=== PATIENT | male | born 1965 | race Caucasian/White ===

== ENCOUNTER → 2022-06-30 10:21 | Outpatient (CLI) | payer OTHER, MEDICAID, SELFPAY | PROVIDERS: Visit Provider Student in an Organized Health Care Education/Training Program | DX: N39.0 Urinary tract infection, site not specified (principal) | CPT/HCPCS: 81002; 87077; 87086; 87186 ==

== ENCOUNTER → 2022-10-02 09:53 | Outpatient (CLI) | payer OTHER, SELFPAY ==
[2022-10-02 10:42] LABS: Add Manual Diff / Slide Review NO; Basophils Absolute Auto 100 /uL (0-100); Basophils Percent Auto 0.6 % (0-2); Eosinophils Absolute Auto 100 /uL (0-450); Eosinophils Percent Auto 1.1 % (2-4); Hematocrit 45.2 % (41-53); Lymphocytes Absolute Auto 2100 /uL (1100-4500); Lymphocytes Percent Auto 20.8 % (25-40); Mean Corpuscular HGB Conc 35.3 % (30-36); Mean Corpuscular Hemoglobin 33.8 PG (26-34); Mean Corpuscular Volume 95.7 fL (80-100); Monocytes Absolute Auto 1200 /uL (0-900); Monocytes Percent Auto 11.9 % (3-14); Neutrophils Absolute Auto 6500 /uL (1500-7000); Neutrophils Percent Auto 65.6 % (50-75); Platelet Count 217 X10^3/uL (150-400); Red Blood Cell Count 4.72 X10^6/uL (4.5-5.9); Red Cell Distribution Width 13.4 % (11.6-14.8)
[2022-10-02 10:59] LABS: Alanine Aminotransferase 79 IU/L (<50); Albumin 3.8 g/dL (3.5-5.0); Alkaline Phosphatase 118 U/L (38-126); Aspartate Aminotransferase 53 IU/L (17-59); BUN Creatinine Ratio 12.5 (6-22); Bilirubin Total 0.5 mg/dL (0.2-1.3); Blood Urea Nitrogen 9 mg/dL (9-20); Calcium 8.4 mg/dL (8.4-10.2); Carbon Dioxide 33 mmol/L (22-32); Chloride 100 mmol/L (98-107); Cholesterol 184 mg/dL (140-199); Estimated Glomerular Filt Rate > 60 mL/min (>60); Globulin 3.8 g/dL (1.7-4.1); Glucose 112 mg/dL (70-100); HDL Cholesterol 31 mg/dL (40-60); HEMOLYSIS < 15 (0-50); LDL Cholesterol Calculated 124 mg/dL (<100); Potassium 3.5 mmol/L (3.4-5.1); Sodium 139 mmol/L (137-145); Total Protein 7.6 g/dL (6.3-8.2); Triglycerides 145 mg/dL (35-150)
[2022-10-02 11:29] LABS: Prostate Specific Antigen 0.302 ng/mL (0.10-4.00)
== END ==
PROVIDERS: PCP Family Medicine; Referring Provider Family Medicine; Visit Provider Family Medicine
DX: Z00.00 Encounter for general adult medical examination without abnormal findings (principal); I10 Essential (primary) hypertension; N40.0 Benign prostatic hyperplasia without lower urinary tract symptoms
CPT/HCPCS: 36415; 80053; 80061; 84153; 85025

== ENCOUNTER 2022-10-03 15:52 | Emergency (ER) | payer OTHER, SELFPAY ==
[2022-10-03] VITALS (40 sets, daily range): BP systolic 182–233; BP diastolic 109–133; PULSE 61–90; RESP 18–37; TEMP 37.1; O2SAT 92–97; BMI 35.4
--- NOTE | 2022-10-03 16:00 | DI.RAD.S_ITS ---
PROCEDURE: XR CHEST 1V INDICATIONS: Shortness of breath TECHNIQUE: One view of the chest was acquired. COMPARISON: None. FINDINGS: Surgical changes and devices: None. Lungs and pleura: Lungs are clear. No pleural effusions or pneumothorax. Mediastinum: Mediastinal contours appear normal. Heart size is normal. Bones and chest wall: No suspicious bony lesions. Overlying soft tissues appear unremarkable. IMPRESSION: No acute cardiopulmonary disease. Dictated by: Juliette Yoder M.D. on 10/03/2022 at 16:42 Approved by: Juliette Yoder M.D. on 10/03/2022 at 16:42
[2022-10-03 16:26] LABS: Add Manual Diff / Slide Review NO; Basophils Absolute Auto 100 /uL (0-100); Basophils Percent Auto 0.9 % (0-2); Eosinophils Absolute Auto 200 /uL (0-450); Eosinophils Percent Auto 2.1 % (2-4); Hemoglobin 16.3 g/dL (13.5-17.5); Lymphocytes Absolute Auto 2100 /uL (1100-4500); Lymphocytes Percent Auto 21.1 % (25-40); Mean Corpuscular HGB Conc 35.3 % (30-36); Mean Corpuscular Hemoglobin 33.6 PG (26-34); Monocytes Absolute Auto 1200 /uL (0-900); Monocytes Percent Auto 12.1 % (3-14); Neutrophils Absolute Auto 6400 /uL (1500-7000); Neutrophils Percent Auto 63.8 % (50-75); Platelet Count 221 X10^3/uL (150-400); Red Blood Cell Count 4.84 X10^6/uL (4.5-5.9); Red Cell Distribution Width 13.4 % (11.6-14.8); White Blood Cell Count 10.1 X10^3/uL (4.5-11.0)
[2022-10-03 16:34] LABS: COVID19 -Nasal RAPID Negative (Negative)
[2022-10-03 16:36] LABS: INR 1.1 (0.9-1.3); Prothrombin Time 12.5 SECONDS (10.1-12.7)
[2022-10-03 16:42] LABS: Lactate (Lactic Acid) 1.1 mmol/L (0.7-2.1)
[2022-10-03 16:43] LABS: Alanine Aminotransferase 64 IU/L (<50); Albumin 4.1 g/dL (3.5-5.0); Albumin Globulin Ratio 1.1 (1.0-2.8); Alkaline Phosphatase 111 U/L (38-126); Aspartate Aminotransferase 48 IU/L (17-59); BUN Creatinine Ratio 20.5 (6-22); Bilirubin Total 0.5 mg/dL (0.2-1.3); Blood Urea Nitrogen 16 mg/dL (9-20); Calcium 8.7 mg/dL (8.4-10.2); Carbon Dioxide 32 mmol/L (22-32); Chloride 100 mmol/L (98-107); Estimated Glomerular Filt Rate > 60 mL/min (>60); Globulin 3.9 g/dL (1.7-4.1); Glucose 120 mg/dL (70-100); HEMOLYSIS < 15 (0-50); Potassium 3.5 mmol/L (3.4-5.1); Sodium 140 mmol/L (137-145)
[2022-10-03 16:55] LABS: NT-proBNP (BNP-Adult 18+) 300 pg/mL (<125); Troponin I < 0.012 ng/mL (0.01-0.034)
--- NOTE | 2022-10-03 17:03 | PC.NURSE ---
Pts BP 190/115, physician aware.
--- NOTE | 2022-10-03 17:47 | PC.NURSE ---
Pt reports coughing this afternoon and spitting up blood at approx 1500. Pt coughing now and spitting up serosanguenous phlem. Elevated BP 206/122.
--- NOTE | 2022-10-03 18:04 | ED_ITS ---
HPI - SOB/Dyspnea General Chief Complaint: Shortness of Breath/Dyspnea Stated Complaint: Coughing up blood, SOB, 120 pulse Time Seen by Provider: 10/03/22 17:15 Source: patient Mode of arrival: Ambulatory Limitations: no limitations History of Present Illness HPI Narrative: Patient is a 57-year-old male history of hypertension presenting today with hemoptysis. He reports generally feeling well with a cough ongoing for couple of weeks. He was seen and evaluated yesterday by PCP establishing care. He was found be hypertensive there with blood pressure of 174/110 also new diagnosis BPH. He was started on new blood pressure medication but has not yet started it. Today he reports coughing up significant amounts of blood. At least handful or 2 at a time. In the ED he has scant amounts but quite a few episodes in the trash can. He is not dizzy or lightheaded. He denies any shortness of breath with exertion nor orthopnea no nausea or vomiting. He denies any chest pain. No headache. No abdominal pain. He is not on anticoagulation or antiplatelet medication. He denies any fever chills no significant weight loss or weight gain. He is noted to be persistently quite hypertensive with systolic in the 190s to 200s in the ED. Related Data Previous Rx's Medication Instructions Recorded losartan 50 mg-hydrochlorothiazide 1 tab PO DAILY #90 tabs 10/02/22 12.5 mg tablet tamsulosin 0.4 mg capsule 0.4 mg PO BEDTIME #90 caps 10/02/22 Allergies Allergy/AdvReac Type Severity Reaction Status Date / Time No Known Drug Allergies Allergy Unverified 10/02/22 09:07 Review of Systems Review of Systems ROS Unobtainable: All systems reviewed & are unremarkable except as noted in HPI and below Patient History Medical History BPH (benign prostatic hyperplasia) Encounter for well adult exam with abnormal findings Hypertension Tobacco abuse counseling Social History Smoking Status: Current every day smoker Smoking Status: Current every day smoker tobacco type: cigarettes alcohol intake frequency: 3 or more drinks per day Substance Use Type: does not use Exam Initial Vital Signs Initial Vital Signs: Vital Signs Temperature 98.8 F 10/03/22 15:54 Pulse Rate 90 10/03/22 15:54 Respiratory Rate 18 10/03/22 15:54 Blood Pressure 192/128 H 10/03/22 15:54 Pulse Oximetry 97 10/03/22 15:54 Oxygen Delivery Method Room Air 10/03/22 15:54 GENERAL: Alert pleasant 57-year-old male and in no acute distress. HEENT: Head atraumatic,EOMI, pupils reactive, face symmetric, moist mucous membranes CARDIOVASCULAR: Regular rate and rhythm without murmurs, rubs or gallops. RESPIRATORY: Breath sounds equal bilaterally, no wheezes rales or rhonchi. ABDOMEN: Soft, nontender. Normoactive bowel sounds all 4 quadrants. No guarding or rebound. EXTREMITIES: Normal range of motion, no clubbing or edema. Neurovascularly intact NEUROLOGICAL: Alert and oriented x4.Normal gait and speech. SKIN: Warm, dry, no laceration, no petechiae, no rashes or lesions. Course Orders Ordered: Discontinued Medications Hydrochlorothiazide (Hydrochlorothiazide 25 Mg Tablet) 25 mg PO NOW ONE Stop: 10/03/22 21:04 Last Admin: 10/03/22 21:16 Dose: 25 mg Documented By: VERNON Labetalol HCl (Labetalol 20 Mg/4 Ml Syringe) 10 mg IV NOW ONE; Protocol Stop: 10/03/22 18:06 Last Admin: 10/03/22 18:13 Dose: 10 mg Documented By: SHAR Labetalol HCl (Labetalol 20 Mg/4 Ml Syringe) 10 mg IV NOW ONE; Protocol Stop: 10/03/22 19:48 Last Admin: 10/03/22 19:57 Dose: 10 mg Documented By: VERNON Losartan Potassium (Losartan 50 Mg Tablet) 50 mg PO NOW ONE Stop: 10/03/22 21:04 Last Admin: 10/03/22 21:16 Dose: 50 mg Documented By: VERNON Vital Signs Vital signs: Vital Signs - 8 hr 10/03/22 20:08 10/03/22 20:07 10/03/22 20:07 Pulse Rate 62 62 Respiratory Rate 20 21 Blood Pressure 201/120 H 201/120 H Pulse Oximetry 95 92 Oxygen Delivery Method Room Air 10/03/22 20:12 10/03/22 20:12 10/03/22 20:15 Pulse Rate 62 61 Respiratory Rate 24 22 Blood Pressure 199/120 H Pulse Oximetry 94 94 Oxygen Delivery Method 10/03/22 20:15 10/03/22 20:30 10/03/22 20:30 Pulse Rate 61 Respiratory Rate 22 Blood Pressure 188/112 H 198/118 H Pulse Oximetry 95 Oxygen Delivery Method 10/03/22 20:44 Pulse Rate 61 Respiratory Rate Blood Pressure 198/118 H Pulse Oximetry Oxygen Delivery Method MDM - SOB/Dyspnea Lab Data 10/03/22 16:15 10/03/22 16:15 Labs: Lab Results 10/03/22 10/03/22 10/03/22 Range/Units 16:01 16:15 16:15 WBC 10.1 (4.5-11.0) X10^3/uL RBC 4.84 (4.5-5.9) X10^6/uL Hgb 16.3 (13.5-17.5) g/dL Hct 46.0 (41-53) % MCV 95.0 (80-100) fL MCH 33.6 (26-34) PG MCHC 35.3 (30-36) % RDW 13.4 (11.6-14.8) % Plt Count 221 (150-400) X10^3/uL Neut % (Auto) 63.8 (50-75) % Lymph % (Auto) 21.1 L (25-40) % Rooks % (Auto) 12.1 (3-14) % Eos % (Auto) 2.1 (2-4) % Baso % (Auto) 0.9 (0-2) % Neut # (Auto) 6400 (6890-0281) /uL Lymph # (Auto) 2100 (0325-1160) /uL Rooks # (Auto) 1200 H (0-900) /uL Eos # (Auto) 200 (0-450) /uL Baso # (Auto) 100 (0-100) /uL PT 12.5 (10.1-12.7) SECONDS INR 1.1 (0.9-1.3) Sodium (137-145) mmol/L Potassium (3.4-5.1) mmol/L Chloride (98-107) mmol/L Carbon Dioxide (22-32) mmol/L BUN (9-20) mg/dL Creatinine (0.66-1.25) mg/dL Estimated GFR (>60) mL/min BUN/Creatinine Ratio (6-22) Glucose (70-100) mg/dL Lactate (0.7-2.1) mmol/L Calcium (8.4-10.2) mg/dL Total Bilirubin (0.2-1.3) mg/dL AST (17-59) IU/L ALT (<50) IU/L Alkaline Phosphatase (38-126) U/L Troponin I (0.01-0.034) ng/mL NT-Pro-B Natriuret Pep (<125) pg/mL Total Protein (6.3-8.2) g/dL Albumin (3.5-5.0) g/dL Globulin (1.7-4.1) g/dL Albumin/Globulin Ratio (1.0-2.8) SARS-CoV-2 (PCR) Negative (Negative) 10/03/22 10/03/22 10/03/22 Range/Units 16:15 16:15 18:30 WBC (4.5-11.0) X10^3/uL RBC (4.5-5.9) X10^6/uL Hgb (13.5-17.5) g/dL Hct (41-53) % MCV (80-100) fL MCH (26-34) PG MCHC (30-36) % RDW (11.6-14.8) % Plt Count (150-400) X10^3/uL Neut % (Auto) (50-75) % Lymph % (Auto) (25-40) % Rooks % (Auto) (3-14) % Eos % (Auto) (2-4) % Baso % (Auto) (0-2) % Neut # (Auto) (1534-7053) /uL Lymph # (Auto) (7754-2286) /uL Rooks # (Auto) (0-900) /uL Eos # (Auto) (0-450) /uL Baso # (Auto) (0-100) /uL PT (10.1-12.7) SECONDS INR (0.9-1.3) Sodium 140 (137-145) mmol/L Potassium 3.5 (3.4-5.1) mmol/L Chloride 100 (98-107) mmol/L Carbon Dioxide 32 (22-32) mmol/L BUN 16 (9-20) mg/dL Creatinine 0.78 (0.66-1.25) mg/dL Estimated GFR > 60 (>60) mL/min BUN/Creatinine Ratio 20.5 (6-22) Glucose 120 H (70-100) mg/dL Lactate 1.1 (0.7-2.1) mmol/L Calcium 8.7 (8.4-10.2) mg/dL Total Bilirubin 0.5 (0.2-1.3) mg/dL AST 48 (17-59) IU/L ALT 64 H (<50) IU/L Alkaline Phosphatase 111 (38-126) U/L Troponin I < 0.012 < 0.012 (0.01-0.034) ng/mL NT-Pro-B Natriuret Pep 300 H (<125) pg/mL Total Protein 8.0 (6.3-8.2) g/dL Albumin 4.1 (3.5-5.0) g/dL Globulin 3.9 (1.7-4.1) g/dL Albumin/Globulin Ratio 1.1 (1.0-2.8) SARS-CoV-2 (PCR) (Negative) Imaging Data CT scan - chest: Radiologist's Impression: PROCEDURE:? CT ANGIO CHEST ABDOMEN PELVIS ? INDICATIONS:? Hemoptysis, hypertension ? TECHNIQUE:? Precontrast 5 mm thick sections acquired from the lung apices to the iliac crests.? After the administration of intravenous contrast, 2.5 mm thick sections again acquired from the lung apices to the iliac crests.? Maximum intensity projection (MIP) oblique sagittal and coronal reformats were then acquired.? For radiation dose reduction, the following was used:? automated exposure control.? ? COMPARISON:? None. ? FINDINGS:? Image quality:? Good ? Lungs and pleura:? No airspace disease.? Small right Bochdalek's hernia.? Scattered scarring and atelectasis.? No pleural effusions.? Micro nodules and granulomas are present, for example in the left images , for which optional follow-up imaging may be obtained in 1 year for high risk patients. ? Mediastinum, heart, and esophagus:? On noncontrast images.? There is no evidence of intramural hematoma.? Coronary calcifications are present.? On postcontrast arterial phase imaging, no evidence of acute dissection flap is visualized.? No aneurysmal dilation. ? Borderline cardiomegaly.? No hiatal hernia.? No pathologic lymphadenopathy by size criteria. ? Chest wall and thyroid:? Unremarkable. ? Solid organs:? Possible mild hepatic steatosis.? Cholelithiasis.? No pathologic dilation of the biliary tree or pancreatic duct.? No splenomegaly.? No adrenal nodules.? No hydronephrosis.? Nonspecific bilateral perinephric stranding is present. ? Vessels and lymph nodes:? The major mesenteric vessels appear patent.? Venous structures are not well assessed on this study.? Mild atherosclerotic calcifications without high-grade stenosis.? No abdominal aortic aneurysm. ? No pathologic adenopathy by size criteria. ? Bowel and peritoneum:? No evidence of bowel obstruction.? There is focal wall thickening and narrowing in the sigmoid colon (5/228).? Chronic suspected diverticular disease also also present.? No drainable abscess or ascites. ? Body wall:? Unremarkable ? Pelvis:? There is a small focus of air in the bladder correlate with any recent instrumentation.? The prostate is not well evaluated on this study. ? Bones:? No acute or suspicious osseous finding.? Small sclerotic lesions may represent bone islands.? There are degenerative changes. ? ? IMPRESSION:? No definite acute abnormality in the chest, abdomen, or pelvis.? No evidence of aneurysmal aortic pathology, dissection, or intramural hematoma. ? There are significant coronary calcifications. ? In the abdomen/pelvis, nonspecific perinephric and periureteral stranding is present without hydronephrosis.? Correlate with urinalysis.? There is also small amount of air in the bladder, correlate with any recent history of instrumentation. ? Wall thickening and focal narrowing in the sigmoid colon with superimposed chronic diverticular disease.? Recommend correlation with colonoscopy. ? Other findings as above. ? ? Dictated by: Hussain Forman M.D. on 10/03/2022 at 20:00? ECG Data Interpretation: Normal sinus rhythm rate 86 WY interval 158 QRS 88 QTC 454 Q-waves noted in lead [address] elevations no priors to compare MDM Narrative Medical decision making narrative: Patient 57-year-old male with history of hypertension presenting today with hemoptysis. He does not have any evidence of anemia. Pulmonary embolism congestive heart failure mass and pneumonia have been ruled out with CT angio. CT angio chest abdomen pelvis was done for the hemoptysis and significant hypertension. Patient is noted to be quite hypertensive in the emergency department requiring 2 doses of labetalol. He was started on new blood pressure medication yesterday by his PCP which he has yet to start. He says he pick it up tomorrow from the pharmacy. He is no evidence of end-organ damage. He is really asymptomatic. Denies any headache chest pain shortness of breath. BUN creatinine do not show any abnormality. 2- troponins. EKG does show some Q- waves but without any elevation of troponin or chest pain unlikely related today. CT angio does show coronary calcifications. This time patient does admit to drinking alcohol he has not had any alcohol today. Recommend checking his blood pressure starting his blood pressure medications. He is not had any further evidence of significant hemoptysis in the emergency department. Do recommend that hemoptysis continues or worsens then he should return to the emergency department immediately. Discharge Plan Departure Patient Disposition: Home Clinical Impression: Hypertension, Hemoptysis Instructions: High Blood Pressure, DI for Hemoptysis Activity Restrictions/Additional Instructions: *You have been diagnosed with hypertension coughing up blood *What to do: At this time blood work and ED workup today is overall reassuring. However if your still coughing up blood strongly encourage you to return to the emergency department. He may need pulmonary consultation for possible bronchoscopy. Please check your blood pressure at home 1 to 2 times a day to see if your blood pressure is responding to the medication. 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
--- NOTE | 2022-10-03 18:05 | DI.CT.S_ITS ---
PROCEDURE: CT ANGIO CHEST ABDOMEN PELVIS INDICATIONS: Hemoptysis, hypertension TECHNIQUE: Precontrast 5 mm thick sections acquired from the lung apices to the iliac crests. After the administration of intravenous contrast, 2.5 mm thick sections again acquired from the lung apices to the iliac crests. Maximum intensity projection (MIP) oblique sagittal and coronal reformats were then acquired. For radiation dose reduction, the following was used: automated exposure control. COMPARISON: None. FINDINGS: Image quality: Good Lungs and pleura: No airspace disease. Small right Bochdalek's hernia. Scattered scarring and atelectasis. No pleural effusions. Micro nodules and granulomas are present, for example in the left images 11/126, for which optional follow-up imaging may be obtained in 1 year for high risk patients. Mediastinum, heart, and esophagus: On noncontrast images. There is no evidence of intramural hematoma. Coronary calcifications are present. On postcontrast arterial phase imaging, no evidence of acute dissection flap is visualized. No aneurysmal dilation. Borderline cardiomegaly. No hiatal hernia. No pathologic lymphadenopathy by size criteria. Chest wall and thyroid: Unremarkable. Solid organs: Possible mild hepatic steatosis. Cholelithiasis. No pathologic dilation of the biliary tree or pancreatic duct. No splenomegaly. No adrenal nodules. No hydronephrosis. Nonspecific bilateral perinephric stranding is present. Vessels and lymph nodes: The major mesenteric vessels appear patent. Venous structures are not well assessed on this study. Mild atherosclerotic calcifications without high-grade stenosis. No abdominal aortic aneurysm. No pathologic adenopathy by size criteria. Bowel and peritoneum: No evidence of bowel obstruction. There is focal wall thickening and narrowing in the sigmoid colon (5/228). Chronic suspected diverticular disease also also present. No drainable abscess or ascites. Body wall: Unremarkable Pelvis: There is a small focus of air in the bladder correlate with any recent instrumentation. The prostate is not well evaluated on this study. Bones: No acute or suspicious osseous finding. Small sclerotic lesions may represent bone islands. There are degenerative changes. IMPRESSION: No definite acute abnormality in the chest, abdomen, or pelvis. No evidence of aneurysmal aortic pathology, dissection, or intramural hematoma. There are significant coronary calcifications. In the abdomen/pelvis, nonspecific perinephric and periureteral stranding is present without hydronephrosis. Correlate with urinalysis. There is also small amount of air in the bladder, correlate with any recent history of instrumentation. Wall thickening and focal narrowing in the sigmoid colon with superimposed chronic diverticular disease. Recommend correlation with colonoscopy. Other findings as above. Dictated by: Hussain Forman M.D. on 10/03/2022 at 20:00 Approved by: Hussain Forman M.D. on 10/03/2022 at 20:08
[2022-10-03] MEDS: LABETALOL 20 MG/4 ML SYRINGE 10 MG IV ×2 (18:13→19:57)
[2022-10-03 19:30] LABS: Troponin I < 0.012 ng/mL (0.01-0.034)
--- NOTE | 2022-10-03 20:01 | PC.NURSE ---
Patient has informed me that he is a regular drinker of alcohol. Daily 2 plus drinks per day. Today he has not had any and does not remember the last time he has gone for a day without alcohol. Patient stated he has never had a withdrawl episode to date that he can recall.
[2022-10-03] MEDS: hydroCHLOROthiazide 25 MG TABLET PO (21:16)
[2022-10-03] MEDS: LOSARTAN 50 MG TABLET PO (21:16)
== END 2022-10-03 21:23 | disposition home or self-care (01) ==
PROVIDERS: Emergency Medicine; Emergency Provider Emergency Medicine; PCP Family Medicine
DX: R04.2 Hemoptysis (principal); R06.02 Shortness of breath; I10 Essential (primary) hypertension; Z20.822 Contact with and (suspected) exposure to COVID-19
CPT/HCPCS: 36415; 71045; 71275; 74174; 80053; 83605; 83880; 84484; 85025; 85610; 87635; 93005; 93010; 96374; 96376; 99284; C9803

== ENCOUNTER → 2022-10-23 10:40 | Outpatient (CLI) | payer OTHER, SELFPAY | PROVIDERS: PCP Family Medicine; Visit Provider Nurse Practitioner Family | DX: R30.0 Dysuria (principal) | CPT/HCPCS: 87077; 87086; 87186 ==

== ENCOUNTER 2023-03-27 09:52 | Day surgery (SDC) | payer OTHER, SELFPAY ==
[2023-03-27] VITALS (9 sets, daily range): BP systolic 174–204; BP diastolic 107–142; PULSE 64–95; RESP 16–25; TEMP 36.3–36.6; O2SAT 93–96; BMI 34.0
[2023-03-27] MEDS: LACTATED RINGERS 1,000 ML 150 ML IV (10:39)
--- NOTE | 2023-03-27 11:08 | PM.HP.1 ---
History of Present Illness History of Present Illness Date Patient Seen: 03/27/23 Time Patient Seen: 11:09 Chief complaint: Screening Colonoscopy Narrative: The patient presents for colorectal screening. They have never had any previous examination for such. No personal or family history of colon cancer. On further history denies any recent gastrointestinal symptoms. No nausea, vomiting, abdominal pain, loss of appetite, unexplained weight loss, change in bowel habits, or blood per rectum. [facility] Medical History (Updated 10/18/22 @ 00:00 by ) Wears glasses Tobacco abuse counseling BPH (benign prostatic hyperplasia) Hypertension Encounter for well adult exam with abnormal findings Surgical History (Updated 10/13/22 @ 19:48 by Kasey Amanda) Anesthesia History of hernia surgery (~2019) Family History (Updated 10/13/22 @ 19:49 by Kasey Amanda) Father Parkinson's disease Social History household members: spouse Smoking Status: Current every day smoker alcohol intake: current Meds Home Medications and Allergies Home Medications Medication Instructions Recorded Confirmed Type losartan 50 mg-hydrochlorothiazide 1 tab PO DAILY #90 tabs 10/02/22 03/27/23 Rx 12.5 mg tablet tamsulosin 0.4 mg capsule 0.4 mg PO BEDTIME #90 caps 10/02/22 03/27/23 Rx amlodipine 2.5 mg tablet 2.5 mg PO BEDTIME #30 tabs 10/06/22 03/27/23 Rx Allergies Allergy/AdvReac Type Severity Reaction Status Date / Time No Known Drug Allergies Allergy Verified 03/27/23 10:13 Exam Vital Signs (past 8 hours): - 03/27/23 10:21 Temperature 97.8 F Pulse Rate 87 Respiratory Rate 18 Blood Pressure 193/142 H Pulse Oximetry 94 Oxygen Delivery Method Room Air Oxygen Delivery Method Room Air Narrative Exam Narrative: General adult man alert oriented no acute distress Abdomen soft nontender nondistended Assessment & Plan Assessment & Plan narrative: The patient requires colorectal screening and colonoscopy is recommended. Technical details were discussed. Risks, benefits, alternatives explained. Risks including but not limited to myocardial infarction, aspiration, bleeding, pain, missed lesion, incomplete examination, need for further radiographic studies, colonic perforation, and need for major abdominal surgery were discussed. All questions were answered to their satisfaction, and they are in agreement with this plan.
--- NOTE | 2023-03-27 11:09 | PM.OP.COLON ---
Operative Date/Time/Diagnoses Date of procedure: 03/27/23 Time of procedure: 11:09 Pre-op diagnosis: Colorectal screening Procedure & Clinicians Study performed: Sigmoidoscopy Same procedure as scheduled: Yes Indications: Colorectal screening Surgeon: Emiliano Wick Procedure Notes Procedure in detail: The history and physical was performed/updated and the patient is ASA class is 3. The procedure was discussed in detail with the patient. Potential risks complications including infection, bleeding, missed diagnosis, perforation, need for surgery, and were explained. Their questions were answered and informed consent was obtained. Patient was brought to the procedure room and placed standard monitoring equipment. The patient's vital signs were monitored continuously throughout the entire procedure. Prior to starting time-out was performed. The patient was placed in the left lateral recumbent position. Procedural sedation was administered by anesthesia. Examination began with a thorough inspection of the perianal area there was no evidence of fissures, fistulae, external hemorrhoids or cutaneous malignancy. The colonoscopy scope was then placed into the anal canal and was advanced forward. We reached the level of the sigmoid colon which was notable for moderate diverticulosis. The quality of the preparation was inadequate for safe and accurate performance of the procedure and the colonoscopy was therefore aborted. The patient tolerated the procedure well. They will be discharged once criteria are met. Complications: none Impression: Grossly normal sigmoidoscopy. Colonoscopy was aborted Post-procedure Plan for aftercare: Reschedule with an alternative 2 day prep Disposition: same day surgery
[2023-03-27] MEDS: HYDRALAZINE 20 MG/ML VIAL 10 MG IV (11:46)
--- NOTE | 2023-03-27 11:48 | SUR.PHASEI ---
BP elevated, Hydralazine ordered by Dr. Araujo. Patient denied chest pain, nausea, dizziness.
== END 2023-03-27 12:20 | disposition home or self-care (01) ==
PROVIDERS: PCP Family Medicine; Referring Provider Surgery; Visit Provider Surgery
PROC: 0DJD8ZZ Inspection of Lower Intestinal Tract, Via Natural or Artificial Opening Endoscopic (ICD-10-PCS; CPT 45378; principal; 2023-03-27 10:45)
DX: Z12.11 Encounter for screening for malignant neoplasm of colon (principal); Z53.09 Procedure and treatment not carried out because of other contraindication
CPT/HCPCS: 45378; J0360; J2704

== ENCOUNTER 2023-07-26 07:15 | Day surgery (SDC) | payer OTHER, SELFPAY ==
[2023-07-26 07:54] VITALS: BP 194/117; PULSE 81; RESP 16; TEMP 36.3; O2SAT 94
[2023-07-26] MEDS: LACTATED RINGERS 1,000 ML 42 ML IV (07:58)
--- NOTE | 2023-07-26 08:32 | P.HP_ITS ---
History of Present Illness History of Present Illness Date Patient Seen: 07/26/23 Time Patient Seen: 08:32 Chief complaint: Screening Colonoscopy Narrative: Newton is a 58-year-old man who is here for colonoscopy. He had an attempted colonoscopy last year but prep was inadequate. This time he did an additional dose and he believes he has a good prep. He has never had a prior colonoscopy. No family history of colon cancer. [facility] Medical History (Updated 07/26/23 @ 08:33 by Willis Whitlock MD) Wears glasses Tobacco abuse counseling BPH (benign prostatic hyperplasia) Hypertension Encounter for well adult exam with abnormal findings Surgical History (Updated 10/13/22 @ 19:48 by Kasey Amanda) Anesthesia History of hernia surgery (~2019) Family History (Updated 10/13/22 @ 19:49 by Kasey Amanda) Father Parkinson's disease Social History household members: spouse Smoking Status: Current every day smoker alcohol intake: current Meds Home Medications and Allergies Home Medications Medication Instructions Recorded Confirmed Type losartan 50 mg-hydrochlorothiazide 1 tab PO DAILY #90 tabs 10/02/22 07/26/23 Rx 12.5 mg tablet tamsulosin 0.4 mg capsule 0.4 mg PO BEDTIME #90 caps 10/02/22 07/26/23 Rx amlodipine 2.5 mg tablet 2.5 mg PO BEDTIME #30 tabs 10/06/22 07/26/23 Rx Allergies Allergy/AdvReac Type Severity Reaction Status Date / Time No Known Drug Allergies Allergy Verified 07/26/23 07:50 Exam Vital Signs (past 8 hours): - 07/26/23 07:54 Temperature 97.4 F L Pulse Rate 81 Respiratory Rate 16 Blood Pressure 194/117 H Pulse Oximetry 94 Oxygen Delivery Method Room Air Oxygen Delivery Method Room Air Resp Effort & Inspection: normal respiratory effort Neuro General: patient alert and patient awake Assessment & Plan Assessment and plan (1) Colon cancer screening: Status: Acute Plan We reviewed the risks and benefits of colonoscopy for colon cancer screening and he would like to proceed.
[2023-07-26 09:22] VITALS: BP 159/105; PULSE 81; RESP 19; TEMP 36.2; O2SAT 94
--- NOTE | 2023-07-26 09:22 | P.OP.COLON_ITS ---
Operative Date/Time/Diagnoses Date of procedure: 07/26/23 Time of procedure: 09:22 Pre-op diagnosis: Colon cancer screening Post-op diagnosis: same Procedure & Clinicians Study performed: Colonoscopy Same procedure as scheduled: Yes Surgeon: Willis Whitlock Procedure Notes Procedure in detail: Surgeon: Willis Whitlock MD Anesthesia: Landon Scott MD Procedure: The patient was brought to the endoscopy suite, placed in left lateral decubitus position. The patient was connected to monitoring devices. A time-out was performed. Sedation was administered. Once the patient was adequately sedated, a digital rectal exam was performed and was normal. The scope was then inserted and advanced to the mid sigmoid colon. There appeared to be rather narrow segment possibly a stricture mid sigmoid colon. This was carefully traversed and eventually scope was advanced to the cecum and the appe ndiceal orifice was identified and photographed. The scope was then slowly withdrawn over greater than 6 minutes. The mucosa was thoroughly inspected. No polyps were found. Prep was poor above narrow portion of the sigmoid colon but could be irrigated with saline enough to rule out large masses. The scope was retroflexed in the rectum. No other abnormalities were found. The scope was straightened and removed. The patient was awakened and brought to recovery. Scope withdrawal time: 16 minutes Sedation time: 27 minutes EBL: 0 Findings: Narrow sigmoid colon Post-procedure Recommendations: Colonoscopy in 10 years Disposition: PACU
[2023-07-26 09:27] VITALS: BP 158/109; PULSE 72; RESP 20; O2SAT 95
[2023-07-26 09:32] VITALS: BP 138/108; PULSE 82; RESP 15; TEMP 36.2; O2SAT 95
== END 2023-07-26 09:49 | disposition home or self-care (01) ==
PROVIDERS: Surgery; PCP Family Medicine; Referring Provider Surgery; Visit Provider Surgery
PROC: 0DJD8ZZ Inspection of Lower Intestinal Tract, Via Natural or Artificial Opening Endoscopic (ICD-10-PCS; CPT 45378; principal; 2023-07-26 08:15)
DX: Z12.11 Encounter for screening for malignant neoplasm of colon (principal)
CPT/HCPCS: 45378; J2250; J2704

== ENCOUNTER → 2023-11-01 10:23 | Outpatient (CLI) | payer OTHER, SELFPAY ==
[2023-11-01 11:31] LABS: Add Manual Diff / Slide Review NO; Basophils Absolute Auto 100 /uL (0-100); Basophils Percent Auto 1.4 % (0-2); Eosinophils Absolute Auto 100 /uL (0-450); Hematocrit 46.9 % (41-53); Hemoglobin 16.3 g/dL (13.5-17.5); Lymphocytes Absolute Auto 1400 /uL (1100-4500); Lymphocytes Percent Auto 25.6 % (25-40); Mean Corpuscular HGB Conc 34.7 % (30-36); Mean Corpuscular Hemoglobin 33.7 PG (26-34); Mean Corpuscular Volume 97.1 fL (80-100); Monocytes Absolute Auto 800 /uL (0-900); Monocytes Percent Auto 14.1 % (3-14); Neutrophils Absolute Auto 3200 /uL (1500-7000); Neutrophils Percent Auto 57.9 % (50-75); Platelet Count 180 X10^3/uL (150-400); Red Blood Cell Count 4.83 X10^6/uL (4.5-5.9); Red Cell Distribution Width 13.4 % (11.6-14.8); White Blood Cell Count 5.5 X10^3/uL (4.5-11.0)
[2023-11-02 06:42] LABS: Hemoglobin A1C% w Est Avg Glu 6.2 % (4.0-6.0)
[2023-11-02 13:43] LABS: Alanine Aminotransferase 57 IU/L (<50); Albumin 4.1 g/dL (3.5-5.0); Albumin Globulin Ratio 1.1 (1.0-2.8); Alkaline Phosphatase 112 U/L (38-126); Aspartate Aminotransferase 98 IU/L (17-59); BUN Creatinine Ratio 16.1 (6-22); Bilirubin Total 1.3 mg/dL (0.2-1.3); Blood Urea Nitrogen 15 mg/dL (9-20); Calcium 8.5 mg/dL (8.4-10.2); Carbon Dioxide 27 mmol/L (22-32); Chloride 102 mmol/L (98-107); Cholesterol 173 mg/dL (140-199); Estimated Glomerular Filt Rate > 60 mL/min (>60); Globulin 3.7 g/dL (1.7-4.1); Glucose 124 mg/dL (80-110); HDL Cholesterol 30 mg/dL (40-60); HEMOLYSIS 21 (0-50); LDL Cholesterol Calculated 95 mg/dL (<100); Potassium 3.6 mmol/L (3.4-5.1); Sodium 136 mmol/L (137-145); Total Protein 7.8 g/dL (6.3-8.2); Triglycerides 242 mg/dL (35-150)
== END ==
PROVIDERS: PCP Family Medicine; Referring Provider Family Medicine; Visit Provider Family Medicine
DX: Z00.00 Encounter for general adult medical examination without abnormal findings (principal); Z12.5 Encounter for screening for malignant neoplasm of prostate; N40.0 Benign prostatic hyperplasia without lower urinary tract symptoms; I10 Essential (primary) hypertension
CPT/HCPCS: 36415; 80053; 80061; 83036; 84153; 85025

== ENCOUNTER → 2024-07-22 15:16 | Outpatient (CLI) | payer BC, SELFPAY ==
--- NOTE | 2024-07-22 15:17 | DI.RAD.S_ITS ---
PROCEDURE: XR LUMBAR SPINE 2-3V INDICATIONS: eval low back pain TECHNIQUE: 3 views of the lumbar spine were acquired. COMPARISON: None. FINDINGS: Alignment: Mild rightward curve appreciated Bones: No osseous abnormalities. Disc: Moderate L3-4 , mild L4-5 and moderate L5-S1 degenerative disc disease appreciated. There is moderate L4-5 and L5-S1 degenerative facet disease Soft tissues: Overlying bowel gas pattern is normal. No suspicious soft tissue calcifications. IMPRESSION: Degeneration Dictated by: Brendon Dixon M.D. on 07/23/2024 at 11:26 Approved by: Brendon Dixon M.D. on 07/23/2024 at 11:27
== END ==
LOC: RAD 15:17
PROVIDERS: PCP Family Medicine; Referring Provider Family Medicine; Visit Provider Family Medicine
DX: M51.369 Other intervertebral disc degeneration, lumbar region without mention of lumbar back pain or lower extremity pain (principal); M51.379 Other intervertebral disc degeneration, lumbosacral region without mention of lumbar back pain or lower extremity pain; M47.816 Spondylosis without myelopathy or radiculopathy, lumbar region; M47.817 Spondylosis without myelopathy or radiculopathy, lumbosacral region; M54.9 Dorsalgia, unspecified
CPT/HCPCS: 72100

== ENCOUNTER → 2024-07-23 10:15 | Outpatient (CLI) | payer BC, SELFPAY ==
[2024-07-23 10:47] LABS: Add Manual Diff / Slide Review NO; Basophils Absolute Auto 100 /uL (0-100); Basophils Percent Auto 1.7 % (0-2); Eosinophils Absolute Auto 100 /uL (0-450); Eosinophils Percent Auto 1.5 % (2-4); Hematocrit 43.6 % (41-53); Hemoglobin 15.3 g/dL (13.5-17.5); Lymphocytes Absolute Auto 1700 /uL (1100-4500); Mean Corpuscular Hemoglobin 33.5 PG (26-34); Mean Corpuscular Volume 95.7 fL (80-100); Monocytes Absolute Auto 1100 /uL (0-900); Monocytes Percent Auto 13.5 % (3-14); Neutrophils Absolute Auto 4900 /uL (1500-7000); Neutrophils Percent Auto 61.3 % (50-75); Platelet Count 236 X10^3/uL (150-400); Red Blood Cell Count 4.56 X10^6/uL (4.5-5.9); Red Cell Distribution Width 13.8 % (11.6-14.8); White Blood Cell Count 7.9 X10^3/uL (4.5-11.0)
[2024-07-23 10:52] LABS: Hemoglobin A1C% w Est Avg Glu 5.8 % (4.0-6.0)
[2024-07-23 10:57] LABS: Alanine Aminotransferase 45 IU/L (<50); Albumin 4.3 g/dL (3.5-5.0); Albumin Globulin Ratio 1.4 (1.0-2.8); Alkaline Phosphatase 98 U/L (38-126); Aspartate Aminotransferase 45 IU/L (17-59); BUN Creatinine Ratio 15.9 (6-22); Bilirubin Total 0.8 mg/dL (0.2-1.3); Blood Urea Nitrogen 14 mg/dL (9-20); Calcium 9.7 mg/dL (8.4-10.2); Carbon Dioxide 32 mmol/L (22-32); Chloride 99 mmol/L (98-107); Cholesterol 155 mg/dL (140-199); Estimated Glomerular Filt Rate > 60 mL/min (>60); Globulin 3.1 g/dL (1.7-4.1); Glucose 126 mg/dL (80-110); HDL Cholesterol 40 mg/dL (40-60); HEMOLYSIS < 15 (0-50); LDL Cholesterol Calculated 81 mg/dL (<100); Potassium 4.1 mmol/L (3.4-5.1); Sodium 138 mmol/L (137-145); Total Protein 7.4 g/dL (6.3-8.2); Triglycerides 172 mg/dL (35-150)
[2024-07-23 10:59] LABS: HEMOLYSIS < 15 (0-50); Iron 139 ug/dL (49-181)
[2024-07-23 11:11] LABS: Percent Iron Saturation 52 % (20-50); Total Iron Binding Capacity 267 ug/dL (261-462); Transferrin 240 mg/dL (206-381)
[2024-07-23 11:26] LABS: Prostate Specific Antigen 0.308 ng/mL (0.10-4.00)
[2024-07-23 11:31] LABS: TSH w/ Reflex to FT4 2.37 uIU/mL (0.47-4.68)
[2024-07-23 11:51] LABS: Vitamin B12 287 pg/mL (239-931)
== END ==
LOC: LAB 10:16
PROVIDERS: PCP Family Medicine; Referring Provider Family Medicine; Visit Provider Family Medicine
DX: G57.90 Unspecified mononeuropathy of unspecified lower limb (principal); M54.50 Low back pain, unspecified; E11.9 Type 2 diabetes mellitus without complications; I10 Essential (primary) hypertension; N40.0 Benign prostatic hyperplasia without lower urinary tract symptoms
CPT/HCPCS: 36415; 80053; 80061; 82607; 83036; 83540; 83550; 84153; 84443; 85025